=== PATIENT | female | born 1930 | race Hispanic/Latino ===

== ENCOUNTER → 2018-09-02 | Outpatient (CLI) | payer MEDICARE | END | disposition home or self-care (01) | LOC: SHCH 12:44 | PROVIDERS: ATTEND Internal Medicine Cardiovascular Disease | DX: I51.7 Cardiomegaly (principal); I50.32 Chronic diastolic (congestive) heart failure | CPT/HCPCS: 93306 ==

== ENCOUNTER 2021-01-21 14:46 | Inpatient (IN) | payer MEDICARE ==
[~2021-01-21] VITALS: Ht 167.6 cm; Wt 90.1 kg
[2021-01-21 14:48] VITALS: BP 142/63
[2021-01-21] MEDS ORDERED: 0.9%NACL 1000ML 1,000 ML IV ONE ×2 (15:30→16:35)
[2021-01-21 16:00] LABS: BASOPHILS % (AUTO) 0.3 % (0.0-5.0); HEMATOCRIT 38.9 % (36-48); MEAN CORPUSCULAR HEMOGLOBIN 28.3 pg (27.0-33.0); MEAN CORPUSCULAR HGB CONC 31.1 g/dL (32.0-36.0); MEAN CORPUSCULAR VOLUME 90.9 fL (79-99); MONOCYTES % (AUTO) 1.8 % (3.0-13.0); PLATELET COUNT (AUTO) 220 K/uL (130-400); RED BLOOD CELL COUNT(AUTO) 4.28 MIL/uL (4.00-5.50); WHITE BLOOD COUNT (AUTO) 11.3 K/uL (4.8-10.8)
[2021-01-21] MEDS ORDERED: NITROGLYCERIN 0.4 MG SL TAB SL PRN ×2 (16:00→23:30)
[2021-01-21] MEDS ORDERED: FUROSEMIDE 40MG VIAL IVP ONE (16:00)
[2021-01-21 16:12] LABS: INR 1.03 (0.85-1.15); PROTHROMBIN TIME 11.2 SEC (9.6-11.6)
[2021-01-21 16:13] LABS: PARTIAL THROMBOPLASTIN TIME 27.6 SEC (26.3-35.5)
[2021-01-21 16:27] LABS: CREATINE KINASE, TOTAL 40 U/L (21-232); TROPONIN I < 0.04 ng/mL (0.00-0.06)
[2021-01-21 16:28] LABS: MYOGLOBIN 72 ng/mL (10-92)
[2021-01-21] MEDS ORDERED: FUROSEMIDE 40MG VIAL ONE (16:34)
[2021-01-21] MEDS ORDERED: NITROGLYCERIN 0.4 MG SL TAB SL ONE (16:34)
[2021-01-21] MEDS ORDERED: NITROGLYCERIN 1GM OINT 1 INCH/1GM TD ONE ×2 (16:57→17:00)
[2021-01-21 17:14] LABS: ALBUMIN 3.3 g/dL (3.5-5.0); BILIRUBIN,TOTAL 0.4 mg/dL (0.2-1.0); CREATININE 2.3 mg/dL (0.5-1.5); TOTAL PROTEIN, SERUM 6.7 g/dL (6.0-8.3)
[2021-01-21 17:15] LABS: POTASSIUM 7.1 mmol/L (3.5-5.1)
[2021-01-21 17:21] VITALS: BP 139/58
[2021-01-21] MEDS ORDERED: HEPARIN PF LOCK 500 UNIT/5ML IV ONE (17:42)
[2021-01-21] MEDS ORDERED: DEXTROSE 50%-WATER 25 GM/50 ML VIAL IV ONE (18:00)
[2021-01-21] MEDS ORDERED: INSULIN HUMULIN R 100 UNIT/ML 3ML IV ONE (18:00)
[2021-01-21] MEDS ORDERED: CALCIUM GLUC 1GM VIAL 1 GM in 0.9%NACL 100ML 100 ML IV ONE (18:00)
[2021-01-21] MEDS ORDERED: SODIUM BICARB 8.4% 50ML SYRINGE IVP ONE (18:00)
[2021-01-21] MEDS ORDERED: CALCIUM GLUC 1GM VIAL IV ONE (18:30)
[2021-01-21] MEDS ORDERED: SODIUM BICARB 50MEQ 50ML VIAL 50 ML ONE (18:31)
[2021-01-21] MEDS ORDERED: DEXTROSE 50%-WATER 50 ML DISP.SYRIN IV ONE (18:31)
[2021-01-21] MEDS: KAYEXALATE 15GM/60ML PO SCH ×2 (18:35→19:54)
[2021-01-21] MEDS: ALBUTEROL 0.083% 2.5 MG/3 ML INH IH SCH ×2 (19:10→23:19)
[2021-01-21 20:34] VITALS: BP 132/48
[2021-01-21] MEDS ORDERED: ASPI-1197 PO (20:44)
[2021-01-21] MEDS ORDERED: CLON0.1T PO (20:45)
[2021-01-21] MEDS ORDERED: ALBU2.5V2 IH (20:47)
[2021-01-21] MEDS ORDERED: BUME1TAB6 PO (20:49)
[2021-01-21] MEDS ORDERED: ALBU18HF7 IH (20:49)
[2021-01-21] MEDS ORDERED: GLIP-196 PO (20:50)
[2021-01-21] MEDS ORDERED: METO-409 PO (20:50)
[2021-01-21] MEDS ORDERED: ESCI-8 PO (20:51)
[2021-01-21] MEDS ORDERED: PRAV20TA4 PO (20:51)
[2021-01-21] MEDS ORDERED: AMLO-258 PO (20:51)
[2021-01-21 21:36] VITALS: BP 148/54
[2021-01-21] MEDS ORDERED: ZOLPIDEM TARTRATE 5 MG TAB PO PRN (23:30)
[2021-01-21] MEDS ORDERED: ACETAMINOPHEN 325 MG TAB PO PRN ×2 (23:30)
[2021-01-21] MEDS ORDERED: ONDANSETRON 4MG INJ IV PRN (23:30)
[2021-01-21] MEDS ORDERED: GUAIFENESIN-DM 200/20 MG 10 ML PO PRN (23:30)
[2021-01-21] MEDS ORDERED: LACTULOSE 20 GM/30 ML UDCUP PO PRN (23:30)
[2021-01-21] MEDS ORDERED: MAG/ALUM/SIMETH 30 ML UDCUP PO PRN (23:30)
[2021-01-22] VITALS (11 sets, daily range): BP systolic 136–162; BP diastolic 43–60
[2021-01-22] MEDS ORDERED: ALBUTEROL 0.083% 2.5 MG/3 ML INH IH PRN
[2021-01-22 00:10] LABS: CREATININE 2.5 mg/dL (0.5-1.5); POTASSIUM 5.7 mmol/L (3.5-5.1)
[2021-01-22] MEDS: AZITHROMYCIN 250 MG TABLET PO SCH (03:00)
[2021-01-22] MEDS: CEFTRIAXONE 1G VIAL IVP SCH (03:00)
[2021-01-22 03:52] LABS: ABG BASE EXCESS 2.8 mmol/L (-2.0-3.0); ABG HCO3 33.3 mmol/L (21.0-28.0); ABG OXYGEN SATURATION 95.6 % (95.0-99.0); ABG PCO2 81 mmHg (32-45)
[2021-01-22] MEDS ORDERED: FUROSEMIDE 20MG VIAL IV SCH (05:00)
[2021-01-22] MEDS: IPRATROPIUM/ALBUTEROL SULFATE 3 ML SOLUTION IH SCH ×4 (06:00→23:18)
[2021-01-22 06:31] LABS: HEMATOCRIT 34.9 % (36-48); MEAN CORPUSCULAR HEMOGLOBIN 28.5 pg (27.0-33.0); MEAN CORPUSCULAR HGB CONC 31.5 g/dL (32.0-36.0); MEAN CORPUSCULAR VOLUME 90.4 fL (79-99); PLATELET COUNT (AUTO) 179 K/uL (130-400); RED BLOOD CELL COUNT(AUTO) 3.86 MIL/uL (4.00-5.50); RED CELL DISTRIBUTION WIDTH 12.2 % (11.0-15.5); WHITE BLOOD COUNT (AUTO) 9.7 K/uL (4.8-10.8)
[2021-01-22 06:48] LABS: B-TYPE NATRIURETIC PEPTIDE 971 pg/mL (0-100)
[2021-01-22 06:59] LABS: BILIRUBIN,TOTAL 0.3 mg/dL (0.2-1.0); CREATININE 2.6 mg/dL (0.5-1.5); POTASSIUM 5.8 mmol/L (3.5-5.1); THYROID STIMULATING HORMONE 2.04 uIU/mL (0.36-3.74); TOTAL PROTEIN, SERUM 6.1 g/dL (6.0-8.3)
[2021-01-22] MEDS: ALBUTEROL 0.083% 2.5 MG/3 ML INH IH SCH (07:11)
[2021-01-22 07:12] LABS: LYMPHOCYTES % (MANUAL) 11 % (22-44); MAN.DIFF COMMENT-IMPRESSION MANUAL DIFFERENTIAL; MONOCYTES % (MANUAL) 5 % (2-9); SEGMENTED NEUTROPHILS % 84 % (40-70)
[2021-01-22 07:13] LABS: PLATELET MORPHOLOGY COMMENT ADEQUATE
[2021-01-22 07:20] LABS: HEMOGLOBIN A1C 8.2 % (4.0-6.0)
[2021-01-22] MEDS ORDERED: KAYEXALATE 15GM/60ML PO PRN (08:30)
[2021-01-22] MEDS: CLONIDINE HCL 0.1 MG TABLET PO SCH ×2 (09:00→10:46)
[2021-01-22] MEDS ORDERED: BUMETANIDE 1 MG TAB PO SCH (09:00)
[2021-01-22] MEDS: CITALOPRAM 20 MG TABLET PO SCH (10:45)
[2021-01-22] MEDS: ASPIRIN 81MG CHEW TAB PO SCH (10:45)
[2021-01-22] MEDS: FAMOTIDINE 20MG VIAL IV SCH (10:45)
[2021-01-22] MEDS: ENOXAPARIN SODIUM 30 MG/0.3 ML SQ SCH (10:46)
[2021-01-22] MEDS: METOPROLOL SUCCINATE 50 MG TAB.SR.24H PO SCH ×2 (10:46→21:00)
[2021-01-22] MEDS: AMLODIPINE 5 MG TAB PO SCH (10:46)
[2021-01-22 10:59] LABS: ABG BASE EXCESS 3.1 mmol/L (-2.0-3.0); ABG HCO3 32.2 mmol/L (21.0-28.0); ABG OXYGEN SATURATION 97.3 % (95.0-99.0); ABG PCO2 70 mmHg (32-45)
[2021-01-22] MEDS: FUROSEMIDE 40MG VIAL IV SCH (19:30)
[2021-01-22] MEDS: SIMVASTATIN 20 MG TABLET PO SCH (21:00)
[2021-01-23] VITALS (7 sets, daily range): BP systolic 120–164; BP diastolic 41–94
[2021-01-23] MEDS: IPRATROPIUM/ALBUTEROL SULFATE 3 ML SOLUTION IH SCH ×3 (06:54→19:33)
[2021-01-23 07:09] LABS: HEMATOCRIT 33.9 % (36-48); MEAN CORPUSCULAR HEMOGLOBIN 28.4 pg (27.0-33.0); MEAN CORPUSCULAR HGB CONC 32.2 g/dL (32.0-36.0); MEAN CORPUSCULAR VOLUME 88.3 fL (79-99); RED BLOOD CELL COUNT(AUTO) 3.84 MIL/uL (4.00-5.50); RED CELL DISTRIBUTION WIDTH 12.3 % (11.0-15.5); WHITE BLOOD COUNT (AUTO) 7.7 K/uL (4.8-10.8)
[2021-01-23 07:30] LABS: CREATININE 2.2 mg/dL (0.5-1.5); MAGNESIUM 2.2 mg/dL (1.80-2.40); PHOSPHORUS 3.5 mg/dL (2.5-4.9); POTASSIUM 3.3 mmol/L (3.5-5.1)
[2021-01-23] MEDS: AMLODIPINE 5 MG TAB PO SCH (10:19)
[2021-01-23] MEDS: METOPROLOL SUCCINATE 50 MG TAB.SR.24H PO SCH ×2 (10:19→22:15)
[2021-01-23] MEDS: CEFTRIAXONE 1G VIAL IVP SCH (10:20)
[2021-01-23] MEDS: CLONIDINE HCL 0.1 MG TABLET PO SCH (10:20)
[2021-01-23] MEDS: ASPIRIN 81MG CHEW TAB PO SCH (10:20)
[2021-01-23] MEDS: AZITHROMYCIN 250 MG TABLET PO SCH (10:20)
[2021-01-23] MEDS: FUROSEMIDE 40MG VIAL IV SCH ×2 (10:20→22:14)
[2021-01-23] MEDS: FAMOTIDINE 20MG VIAL IV SCH (10:20)
[2021-01-23] MEDS: ENOXAPARIN SODIUM 30 MG/0.3 ML SQ SCH (10:26)
[2021-01-23] MEDS: PANTOPRAZOLE 40 MG TAB DR PO SCH (10:28)
[2021-01-23] MEDS: CITALOPRAM 20 MG TABLET PO SCH (13:00)
[2021-01-23] MEDS ORDERED: KCL 20 MEQ ERTAB PO ONE ×2 (15:23→15:30)
[2021-01-23] MEDS ORDERED: FUROSEMIDE 40MG VIAL ONE (21:33)
[2021-01-23] MEDS: SIMVASTATIN 20 MG TABLET PO SCH (22:15)
[2021-01-24] VITALS: BP 160/89
[2021-01-24] MEDS: IPRATROPIUM/ALBUTEROL SULFATE 3 ML SOLUTION IH SCH ×3 (00:26→12:55)
[2021-01-24 02:35] VITALS: BP 186/72
[2021-01-24] MEDS: AZITHROMYCIN 250 MG TABLET PO SCH (02:49)
[2021-01-24] MEDS: CEFTRIAXONE 1G VIAL IVP SCH (02:49)
[2021-01-24 04:00] VITALS: BP 172/61
[2021-01-24] MEDS ORDERED: GLUCAGON 1MG KIT 1 MG ML IM PRN (06:00)
[2021-01-24] MEDS ORDERED: DEXTROSE 50%-WATER 50 ML DISP.SYRIN IV PRN (06:00)
[2021-01-24 06:23] LABS: HEMATOCRIT 35.8 % (36-48); MEAN CORPUSCULAR HEMOGLOBIN 27.9 pg (27.0-33.0); MEAN CORPUSCULAR HGB CONC 31.3 g/dL (32.0-36.0); MEAN CORPUSCULAR VOLUME 89.3 fL (79-99); PLATELET COUNT (AUTO) 158 K/uL (130-400); RED BLOOD CELL COUNT(AUTO) 4.01 MIL/uL (4.00-5.50); RED CELL DISTRIBUTION WIDTH 12.4 % (11.0-15.5); WHITE BLOOD COUNT (AUTO) 7.3 K/uL (4.8-10.8)
[2021-01-24 06:30] LABS: CREATININE 2.1 mg/dL (0.5-1.5); POTASSIUM 3.8 mmol/L (3.5-5.1)
[2021-01-24 07:01] LABS: LYMPHOCYTES % (MANUAL) 17 % (22-44); MONOCYTES % (MANUAL) 4 % (2-9); SEGMENTED NEUTROPHILS % 79 % (40-70)
[2021-01-24 07:02] LABS: MAN.DIFF COMMENT-IMPRESSION MANUAL DIFFERENTIAL; PLATELET MORPHOLOGY COMMENT ADEQUATE
[2021-01-24] MEDS: INSULIN HUMULIN R 100 UNIT/ML 3ML SQ SCH ×3 (07:16→16:30)
[2021-01-24] MEDS: PANTOPRAZOLE 40 MG TAB DR PO SCH (07:17)
[2021-01-24 08:05] VITALS: BP 158/51
[2021-01-24] MEDS: ENOXAPARIN SODIUM 30 MG/0.3 ML SQ SCH (08:46)
[2021-01-24] MEDS: AMLODIPINE 5 MG TAB PO SCH (08:46)
[2021-01-24] MEDS: FAMOTIDINE 20MG VIAL IV SCH (08:48)
[2021-01-24] MEDS: ASPIRIN 81MG CHEW TAB PO SCH (08:48)
[2021-01-24] MEDS: METOPROLOL SUCCINATE 50 MG TAB.SR.24H PO SCH (08:48)
[2021-01-24] MEDS: CLONIDINE HCL 0.1 MG TABLET PO SCH (08:48)
[2021-01-24] MEDS: CITALOPRAM 20 MG TABLET PO SCH (08:48)
[2021-01-24] MEDS ORDERED: GLIPIZIDE XL 10MG TAB PO SCH (09:00)
[2021-01-24 12:13] VITALS: BP 162/58
[2021-01-24 16:56] VITALS: BP 164/64
== END 2021-01-24 17:30 | disposition home or self-care (01) | DRG 682 ==
LOC: EDH 14:46 → EDHIP 18:17 → OBSVTOIN 18:17 → 4CH 01-24 01:51
PROVIDERS: ADMIT Internal Medicine Critical Care Medicine; ATTEND Internal Medicine Critical Care Medicine
PROC: 5A09357 Assistance with Respiratory Ventilation, Less than 24 Consecutive Hours, Continuous Positive Airway Pressure (ICD-10-PCS; principal; 2021-01-22)
PROC: 5A09357 Assistance with Respiratory Ventilation, Less than 24 Consecutive Hours, Continuous Positive Airway Pressure (ICD-10-PCS; 2021-01-23)
PROC: 5A09357 Assistance with Respiratory Ventilation, Less than 24 Consecutive Hours, Continuous Positive Airway Pressure (ICD-10-PCS; 2021-01-24)
DX: N17.9 Acute kidney failure, unspecified (principal); J18.9 Pneumonia, unspecified organism; J96.21 Acute and chronic respiratory failure with hypoxia; I13.0 Hypertensive heart and chronic kidney disease with heart failure and stage 1 through stage 4 chronic kidney disease, or unspecified chronic kidney disease; N18.4 Chronic kidney disease, stage 4 (severe); E10.22 Type 1 diabetes mellitus with diabetic chronic kidney disease; E87.5 Hyperkalemia; I50.9 Heart failure, unspecified; Z68.33 Body mass index [BMI] 33.0-33.9, adult; E66.9 Obesity, unspecified; D64.9 Anemia, unspecified; E87.6 Hypokalemia; G47.33 Obstructive sleep apnea (adult) (pediatric); Z20.822 Contact with and (suspected) exposure to COVID-19; Z99.81 Dependence on supplemental oxygen; Z79.82 Long term (current) use of aspirin; Z79.4 Long term (current) use of insulin; Z79.899 Other long term (current) drug therapy
CPT/HCPCS: 36415; 36600; 71045; 71250; 76770; 78582; 80048; 80053; 82550; 82803; 82948; 83036; 83735; 83874; 83880; 84100; 84132; 84145; 84443; 84484; 85025; 85027; 85378; 85610; 85730; 87040; 87635; 87804; 92610; 93005; 93306; 93356; 94640; 94660; 94664; 97039; 99291; A9540; A9558; C9803; G0378; J0610; J0696; J1642; J1650; J1815; J1940; J3490; J7030; J7070